=== PATIENT | female | born 1960 | race Caucasian/White ===

== ENCOUNTER → 2017-02-12 | Outpatient (CLI) | payer OTHER ==
--- NOTE | 2017-02-12 10:28 | RAD ---
DATE: 02/12/2017. EXAM: DIGITAL SCREEN BILAT W/CAD. HISTORY: Routine mammographic screening. COMPARISON: 11/23/2015. This study was interpreted with the benefit of Computerized Aided Detection (CAD). FINDINGS: The breast parenchyma is heterogeneously dense, which could reduce sensitivity of mammography. Breast parenchyma level C.. There is a new partially obscured, partially circumscribed density posterior superiorly on the left MLO view. It correlate on the CC view is unclear but it is likely lateral. The parenchymal pattern elsewhere is stable. Scattered calcifications are benign. BI-RADS CATEGORY: 0 INCOMPLETE: NEEDS ADDITIONAL IMAGING EVALUATION AND/OR PRIOR MAMMOGRAMS FOR COMPARISON.. RECOMMENDED FOLLOW-UP: ADD ADDITIONAL IMAGING. Spot compression of the new density superolaterally on the left. See annotations. Sonography if necessary. PQRS compliance statement: Patient information was entered into a reminder system with a target due date (now) for the next mammogram. Mammography is a sensitive method for finding small breast cancers, but it does not detect them all and is not a substitute for careful clinical examination. A negative mammogram does not negate a clinically suspicious finding and should not result in delay in biopsying a clinically suspicious abnormality. "Our facility is accredited by the [employer] Mammography [employer]."
== END | disposition home or self-care (01) ==
LOC: MAMMO 08:16
PROVIDERS: ATTEND Obstetrics & Gynecology
DX: Z12.31 Encounter for screening mammogram for malignant neoplasm of breast (principal)
CPT/HCPCS: G0202; 77067

== ENCOUNTER → 2017-02-20 | Outpatient (CLI) | payer OTHER ==
--- NOTE | 2017-02-20 11:26 | RAD ---
DATE: 02/20/2017 EXAM: DIGITAL DIAGNOSTIC LT, BREAST LEFT HISTORY: Suspicious screening study COMPARISON: 02/12/2017, 11/23/2015 This study was interpreted with the benefit of Computerized Aided Detection (CAD). The breast parenchyma is heterogeneously dense, which could reduce sensitivity of mammography. Breast parenchyma level C. FINDINGS: The recent screening study demonstrated a suspicious density in the left breast seen only in the oblique projection. A spot compression oblique view of this region demonstrates heterogeneous fibroglandular shadows, similar to those seen on prior exams. No discrete breast mass is seen. A spot compression cc view of the lateral aspect of left breast as well as a straight medial lateral view also show no definite mass. The appearance on the screening study was probably a summation shadow. Left breast ultrasound, 02/20/2017: A targeted ultrasound exam of the upper outer quadrant left breast was performed. Normal heterogeneous fibroglandular shadows are present. No breast mass is evident. IMPRESSION: There is no mammographic evidence of malignancy in left breast. Routine yearly mammographic follow-up is suggested. BI-RADS CATEGORY: 2 BENIGN FINDING(S) RECOMMENDED FOLLOW-UP: 12M 12 MONTH FOLLOW-UP PQRS compliance statement: Patient information was entered into a reminder system with a target due date for the next mammogram. Mammography is a sensitive method for finding small breast cancers, but it does not detect them all and is not a substitute for careful clinical examination. A negative mammogram does not negate a clinically suspicious finding and should not result in delay in biopsying a clinically suspicious abnormality. "Our facility is accredited by the [employer] Mammography [employer]."
== END | disposition home or self-care (01) ==
LOC: MAMMO 09:34
PROVIDERS: ATTEND Obstetrics & Gynecology
DX: R92.8 Other abnormal and inconclusive findings on diagnostic imaging of breast (principal)
CPT/HCPCS: 76641; G0206; 77065

== ENCOUNTER → 2018-05-26 | Outpatient (CLI) | payer OTHER ==
--- NOTE | 2018-05-26 14:24 | RAD ---
Addendum: History should state: routine screening evaluation. DATE: 05/26/2018 10:00 AM EXAM: MAMMO ANDRY SCREENING BILATERAL HISTORY: routine diagnostic evaluation. COMPARISON: Prior mammographic imaging dating back to 06/03/2013 Bilateral CC and MLO views of the breasts were performed. Bilateral breast tomosynthesis was performed in CC and MLO projections. This study was interpreted with the benefit of Computerized Aided Detection (CAD ). Breast Density: The breast parenchyma shows scattered fibroglandular densities. Breast parenchyma level B. FINDINGS: An well-circumscribed but slightly irregular nodular mass is seen in the lateral right breast. No suspicious right breast calcification is identified. No suspicious masses, microcalcifications or architectural distortion is present to suggest malignancy in the left breast. The visualized axillae are unremarkable. IMPRESSION: Right breast mass, findings for which additional imaging is advised. BI-RADS CATEGORY: 0 INCOMPLETE: NEEDS ADDITIONAL IMAGING EVALUATION AND/OR PRIOR MAMMOGRAMS FOR COMPARISON. RECOMMENDED FOLLOW-UP: ADD ADDITIONAL IMAGING The patient will be contacted to return for additional imaging and a supplemental report will follow. Specifically ultrasound of the right lateral breast is recommended PQRS compliance statement: Patient information was entered into a reminder system with a target due date -immediate recall. Mammography is a sensitive method for finding small breast cancers, but it does not detect them all and is not a substitute for careful clinical examination. A negative mammogram does not negate a clinically suspicious finding and should not result in delay in biopsying a clinically suspicious abnormality. "Our facility is accredited by the [employer] Mammography [employer]." NIMA
== END | disposition home or self-care (01) ==
LOC: MAMMO 07:57
PROVIDERS: ATTEND Obstetrics & Gynecology
DX: Z12.31 Encounter for screening mammogram for malignant neoplasm of breast (principal)
CPT/HCPCS: 77063; 77067

== ENCOUNTER → 2018-05-30 | Outpatient (CLI) | payer OTHER ==
--- NOTE | 2018-05-30 14:09 | RAD ---
Right breast ultrasound, 05/30/2018: History: Breast nodule The screening mammography demonstrated a nodule in the lateral right breast. A targeted ultrasound exam of this region was therefore performed. A smooth, lobulated hypoechoic nodule is identified at the 8:30 location approximately 3 cm from the nipple. It is wider than tall. Its margins are somewhat lobulated. No posterior acoustic enhancement or shadowing is evident. It has a solid appearance and is most likely a fibroadenoma. A circumscribed malignancy cannot be excluded, and therefore ultrasound-guided biopsy is suggested for further evaluation. This appears to correspond to the nodule seen on the mammograms. No other abnormality was seen in this portion of the right breast. IMPRESSION: Solid appearing right breast nodule as described above. Ultrasound-guided biopsy is suggested for further evaluation. Note: The findings were discussed with the patient at the time of the exam and she understands our recommendation for biopsy. She will follow up with the ordering physician. BI-RADS 4-suspicious abnormality
== END | disposition home or self-care (01) ==
LOC: MAMMO 12:52
PROVIDERS: ATTEND Obstetrics & Gynecology
DX: R92.8 Other abnormal and inconclusive findings on diagnostic imaging of breast (principal)
CPT/HCPCS: 76641

== ENCOUNTER → 2018-06-30 | Outpatient (CLI) | payer OTHER ==
--- NOTE | 2018-06-30 09:42 | RAD ---
DATE: June 30, 2018 EXAM: DIGITAL DIAGNOSTIC RT, US GUID NDL PLACE/ASPI/BX HISTORY: 1 cm solid nodule of the 8:30 position of the right breast 3 cm from the nipple. ULTRASOUND-GUIDED CORE BIOPSY OF THE RIGHT BREAST Procedure: Sonography of the right breast was performed which demonstrates a 1 cm nodule of the 8:30 position of the right breast 3 cm from the nipple. An appropriate skin alyson was made on the right breast overlying this nodule. The procedure and possible complications including bleeding and infection were explained. The patient provided both verbal and written consent. A timeout was performed which confirmed the name of the patient and date of and the type of procedure and the side of the procedure. Allergies to medications were reviewed. The patient's questions were answered. The right breast was prepped and draped in the usual sterile fashion. A total of 5 cc of 1% lidocaine was utilized for local anesthesia. Using sterile technique and ultrasound guidance, a small skin neck was made and 5 separate [id number] core biopsies were obtained using ultrasound guidance. Sonographic spot images were obtained. Following this, a breast biopsy marker clip was placed along the edge of the nodule using ultrasound guidance. A sonographic spot image demonstrates the biopsy clip adjacent to the nodule. Manual pressure was applied for 5 minutes and hemostasis was deemed adequate. Sterile Band-Aid was applied to the biopsy site. The patient tolerated the procedure well without complication. The biopsy samples were placed into formalin and sent to pathology for further evaluation. Follow-up will be with the patient's referring physician. IMPRESSION: Ultrasound-guided core biopsy sampling of the nodule of the right breast was performed without complication. Pathology results pending. 2-D DIGITAL DIAGNOSTIC 2-D MAMMOGRAPHY Findings: The biopsy clip is present along the anterior edge of the nodule of the 8:30 position of the right breast. IMPRESSION: Biopsy clip present within the anterior edge of the right breast nodule at the 8:30 position.
--- NOTE | 2018-07-01 15:06 | PATHOLOGY ---
[facility] Accession Number: [id number] . 01 Material submitted: . RIGHT BREAST MASS 1CM 8:30 3 CMFN . 01 Clinical history: . Right breast mass, biopsy 1 cm, 833 cm from nipple . 02 Diagnosis: Breast tissue, right breast mass 8:30 needle biopsies: - Fibroadenoma, with focal apocrine metaplasia. (JPM:julianna; 07/01/2018) MBR/07/01/2018 . 02 Comment: There is no evidence of malignancy. (JPM:julianna; 07/01/2018) . 02 Electronically signed: . Judson Mejia MD, Pathologist NPI- [id number] . 01 Gross description: . The specimen is received in formalin, labeled "Yen Trujillo, right breast mass, 8:30, 3 cm from nipple", are several juárez-white fibrofatty cores and its fragments measuring 1.3 x 0.4 x 0.1 cm in aggregate, entirely submitted in A1-A3. Specimen excised at: 9:00 on 06/30/18, placed in formalin at: 910 on 06/30/18, formalin exposure: Approximately 12 hours and 30 minutes. ([facility]; 06/30/2018) SHS/SHS . 02 Pathologist provided ICD-10: D24.1, N60.81 . 02 CPT . 301409 Specimen Comment: A courtesy copy of this report has been sent to Specimen Comment: [phone], . Specimen Comment: Report sent to / DR MONSIVAIS Performed at: [address], [place], [place] [id number] MD Ralph Collins MD Phone: [phone] Performed at: [address] [id number] MD Judson Mejia MD Phone: [phone]
== END | disposition home or self-care (01) ==
LOC: US 08:05
PROVIDERS: ATTEND Surgery
DX: D24.1 Benign neoplasm of right breast (principal); N60.81 Other benign mammary dysplasias of right breast; Z90.49 Acquired absence of other specified parts of digestive tract; Z98.890 Other specified postprocedural states; F17.200 Nicotine dependence, unspecified, uncomplicated
CPT/HCPCS: 19083; 77065; 88305; C1713; 19081; 76942

== ENCOUNTER → 2019-10-01 | Outpatient (CLI) | payer OTHER ==
--- NOTE | 2019-10-05 10:55 | RAD ---
BILATERAL SCREENING MAMMOGRAM, 3-D History: Routine screening. Comparison: 06/03/2013, 06/16/2014, 11/23/2015, 02/12/2017 . 05/26/2018 Technique: MLO and CC digital tomosynthesis (3D) images obtained. Radiologist reviewed these images on dedicated workstation. Findings: Breast Tissue Density C : The breasts are heterogeneously dense, which may obscure small masses. There are no new masses or suspicious calcifications. Biopsy clip marker is present at the right upper outer anterior breast. No suspicious new distortion identified. IMPRESSION: No mammographic evidence of malignancy. Recommend routine screening. BI-RADS category 1: Negative. The images were reviewed with computer-aided detection. Patient information is entered into reminder system with a target due date for the next screening mammogram. Mammography is the most sensitive method for finding small breast cancers, but it does not detect them all and is not a substitute for careful clinical examination. A negative mammogram does not negate a clinically suspicious finding and should not result in delay in biopsying a clinically suspicious abnormality. "Our facility is accredited by the [employer] Mammography [employer]." Electronically signed by: Marquis Blanco MD (10/05/2019 10:52 AM) [id number]
== END | disposition home or self-care (01) ==
LOC: MAMMO 08:29
PROVIDERS: ATTEND Internal Medicine
DX: Z12.31 Encounter for screening mammogram for malignant neoplasm of breast (principal)
CPT/HCPCS: 77063; 77067

== ENCOUNTER → 2020-10-13 | Outpatient (CLI) | payer OTHER ==
--- NOTE | 2020-10-14 19:10 | RAD ---
DATE: 10/13/2020 EXAM: MAMMO ANDRY SCREENING BILATERAL HISTORY: Screening COMPARISON: Multiple prior exams dating back to 11/23/2015 This study was interpreted with the benefit of Computerized Aided Detection (CAD). Breast Density: HETERO The breast parenchyma is heterogenously dense, which could reduce sensitivity of mammography. Breast parenchyma level C. FINDINGS: No mass, suspicious calcification, or architectural distortion in either breast. IMPRESSION: No evidence of malignancy. BI-RADS CATEGORY: 1 NEGATIVE RECOMMENDED FOLLOW-UP: 12M 12 MONTH FOLLOW-UP PQRS compliance statement: Patient information was entered into a reminder system with a target due date for the next mammogram. Mammography is a sensitive method for finding small breast cancers, but it does not detect them all and is not a substitute for careful clinical examination. A negative mammogram does not negate a clinically suspicious finding and should not result in delay in biopsying a clinically suspicious abnormality. "Our facility is accredited by the [employer] Mammography Program."
== END ==
LOC: MAMMO 08:03
PROVIDERS: ATTEND Internal Medicine
DX: Z12.31 Encounter for screening mammogram for malignant neoplasm of breast (principal)
CPT/HCPCS: 77063; 77067